=== PATIENT | male | born 2000 | race Caucasian/White ===

== ENCOUNTER 2022-04-20 22:22 | Emergency (ER) | payer OTHER, SELFPAY ==
[2022-04-20 22:33] VITALS: BP 119/78; PULSE 84; RESP 18; TEMP 36.7; O2SAT 99; BMI 24.4
--- NOTE | 2022-04-20 22:45 | ED.GENADULT ---
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 Currently has no visual problem and feels his vision is normal occasionally will feel blurred as novel lot eye pain, no diplopia Related Data Home Medications Medication Instructions Recorded Confirmed armodafinil 150 mg tablet 150 mg PO DAILY 04/20/22 04/20/22 dextroamphetamine-amphetamine 20 20 mg PO DAILY 04/20/22 04/20/22 mg tablet fluoxetine 20 mg capsule 20 mg PO QDAY 04/20/22 04/20/22 fluoxetine 40 mg capsule 40 mg PO QDAY 04/20/22 04/20/22 Allergies Allergy/AdvReac Type Severity Reaction Status Date / Time amoxicillin Allergy Intermediate Hives Verified 04/20/22 22:38 Review of Systems Status of ROS: Reports: 6 or more systems reviewed and unremarkable except as noted in History and below [facility] Medical History (Updated 04/20/22 @ 23:14 by Diego Taylor RN) No significant past medical history Surgical History (Updated 04/20/22 @ 23:14 by Diego Taylor RN) No significant past surgical history Social History Smoking Status: Never smoker Do you use any of these nicotine containing products: None Second hand tobacco smoke exposure: No How often do you have a drink containing alcohol: never How often do you have six or more drinks on one occasion: Never AUDIT-C Alcohol total score: 0 Non-prescribed substance use: denies use Exam Narrative: Exam Narrative: Objective: Patient has normal gross visual acuity, no left eye conjunctivitis, small bruise to the upper lid Pupils react to light extraocular moves intact, funduscopic exam shows no evidence of bleeding or abnormality on the left eye, magnified exam shows no foreign body or abrasion to the eye Const: Vital Signs, click to edit/add: Vital Signs - 24 hr 04/20/22 22:33 Temperature 98.0 F Pulse Rate [Right Pulse Oximeter] 84 Respiratory Rate 18 Blood Pressure [Ri ght Upper Arm] 119/78 Pulse Oximetry 99 Oxygen Delivery Me thod Room Air Course Vital Signs Vital signs: Initial Vital Signs Temperature 98.0 F 04/20/22 22:33 Temperature Source Temporal Artery Scan 04/20/22 22:33 Pulse Rate 84 04/20/22 22:33 Respiratory Rate 18 04/20/22 22:33 Blood Pressure 119/78 04/20/22 22:33 Blood Pressure Mean 91 04/20/22 22:33 Blood Pressure Position Sitting 04/20/22 22:33 Pulse Oximetry 99 04/20/22 22:33 Oxygen Delivery Method 04/20/22 22:33 Vital Signs Temperature 98.0 F 04/20/22 22:33 Pulse Rate 84 04/20/22 22:33 Respiratory Rate 18 04/20/22 22:33 Blood Pressure 119/78 04/20/22 22:33 Pulse Oximetry 99 04/20/22 22:33 Oxygen Delivery Method 04/20/22 22:33 Temperature 98.0 F 04/20/22 23:20 Pulse Rate 79 04/20/22 23:20 Respiratory Rate 18 04/20/22 23:20 Blood Pressure 115/74 04/20/22 23:20 Pulse Oximetry 99 04/20/22 23:14 Oxygen Delivery Method 04/20/22 23:14 Medical Decision Making MDM Narrative Medical decision making narrative: Patient had a frisbee hit him in the face in the left eye, intermittently blurred vision, reassuring physical examination and I have site currently, patient has normal gross visual acuity. No evidence of trauma or foreign body to the eye. Will give the [facility] I number have a formal eye exam tomorrow, would recommend this. He can return sooner problems concerns difficulty very Discharge Plan Discharge Clinical Impression: Eye injury Patient Disposition: Home w/ Parent or Adult Condition: Stable Additional Instructions: Light activity, no contact activity, no exercise until eye appointment tomorrow, recommend follow-up with [facility] eye doctor tomorrow for reassessment. Their number is [phone]. Activity Level: Light activity Discharge Diet: Regular Prescriptions: No Action fluoxetine 40 mg capsule 40 mg PO QDAY Label Comments: TAKE 1 CAPSULE BY MOUTH ONCE A DAY WITH 20 MG CAPSULE FOR TOTAL DOSE 60 MG. fluoxetine 20 mg capsule 20 mg PO QDAY armodafinil 150 mg tablet 150 mg PO DAILY Label Comments: TAKE 1 TABLET (150 MG TOTAL) BY MOUTH IN THE MORNING. dextroamphetamine-amphetamine 20 mg tablet 20 mg PO DAILY Label Comments: PLEASE SEE ATTACHED FOR DETAILED DIRECTIONS Stand Alone Forms: [employer] Info Instructions
[2022-04-20 23:14] VITALS: BP 115/74; PULSE 79; RESP 18; TEMP 36.7; O2SAT 99
[2022-04-20 23:20] VITALS: BP 115/74; PULSE 79; RESP 18; TEMP 36.7
== END 2022-04-20 23:20 | disposition home or self-care (01) ==
LOC: ED 22:52
PROVIDERS: Emergency Provider Family Medicine
DX: S05.92XA Unspecified injury of left eye and orbit, initial encounter (principal); Y93.74 Activity, frisbee; Y92.39 Other specified sports and athletic area as the place of occurrence of the external cause
CPT/HCPCS: 99282; 99283

== ENCOUNTER 2022-05-05 15:22 | Emergency (ER) | payer OTHER, SELFPAY ==
[2022-05-05 15:44] VITALS: BP 125/76; PULSE 79; RESP 18; TEMP 36.7; O2SAT 98; BMI 20.2
--- NOTE | 2022-05-05 15:47 | CRLHL7_ITS ---
For Patients: As a result of the Century Cures Act, medical imaging exams and procedure reports are released immediately into your electronic medical record. You may view this report before your referring provider. If you have questions, please contact your health care provider. Indication: Injury and pain. Technique: Right wrist, 3 views Comparison: None. Findings: Bones: Alignment is normal. No fractures or bone lesions. Joint spaces: Unremarkable. Soft tissues: Unremarkable. Impression: No acute injury in the right wrist. Dictated by Vinny Ferrell MD @ 05/05/2022 4:41:04 PM (Electronically Signed)
--- NOTE | 2022-05-05 16:59 | ED.UPPEXIN ---
HPI - Extremity Injury (Upper) General Time Seen by Provider: 17:00 Date Seen: 05/05/22 Chief Complaint: Extremity Pain/Injury, Upper Stated Complaint: Right Wrist Injury - Fracture Concern Time Seen by Provider: 05/05/22 16:59 Source: patient and RN notes reviewed Mode of arrival: ambulatory Limitations: no limitations History of Present Illness HPI narrative: Patient is a 21-year-old male coming in after he talked to the strainer tender about some wrist pain. He was playing Frisbee yesterday and got tangled up with somebody fell on an outstretched wrist. He states his wrist did not really hurt until about 5 hours later. He took 2 ibuprofen last night. He saw the strainer tender today who recommended he be evaluated. Nothing else was injured, did not hit his head, no loss of consciousness. Related Data Home Medications Medication Instructions Recorded Confirmed armodafinil 150 mg tablet 150 mg PO DAILY 04/20/22 04/20/22 dextroamphetamine-amphetamine 20 20 mg PO DAILY 04/20/22 04/20/22 mg tablet fluoxetine 20 mg capsule 20 mg PO QDAY 04/20/22 04/20/22 fluoxetine 40 mg capsule 40 mg PO QDAY 04/20/22 04/20/22 Allergies Allergy/AdvReac Type Severity Reaction Status Date / Time amoxicillin Allergy Intermediate Hives Verified 04/20/22 22:38 Review of Systems Narrative: As per HPI PFSH [facility] Medical History (Updated 05/05/22 @ 17:17 by Carlie Cronin MD) No significant past medical history Surgical History (Updated 04/20/22 @ 23:14 by Diego Taylor RN) No significant past surgical history Social History Smoking Status: Never smoker Do you use any of these nicotine containing products: None Second hand tobacco smoke exposure: No How often do you have a drink containing alcohol: never How often do you have six or more drinks on one occasion: Never AUDIT-C Alcohol total score: 0 Non-prescribed substance use: denies use Exam Const: Vital Signs, click to edit/add: Vital Signs - 24 hr 05/05/22 15:44 Temperature 98.1 F Pulse Rate [Right Pulse Oximeter] 79 Respiratory Rate 18 Blood Pressure [Ri ght Upper Arm] 125/76 Pulse Oximetry 98 Oxygen Delivery Me thod Room Air Documenting provider has reviewed patient's vital signs: yes Common normals: no apparent distress, oriented x3, no limitations, healthy appearing, alert and well nourished Extremity: Other: Nontender on the right clavicle, right glenohumeral joint, humerus intact, no pain around range of motion of elbow or palpation of the elbow. He points to the pain maximal intensity along the left ulnar styloid process. There is no overlying skin changes such is ecchymosis, erythema, swelling. Ulnar deviation hurts the most but he can do it. Range of motion of the wrists is actually quite good. He has full range of motion of his digits. No point tenderness over the carpal bones that I can identify or metacarpals. Neuro: Common normals: oriented x3 Sensorium/orientation: alert Course Course Hospital Course: X-ray was ordered while patient weighted based on his mechanism. It was read by Radiology but the time he was seen we were able to inform him of the negative imaging for fracture. Did discuss with him use of a cock-up wrist splint for comfort and he would like to try this. Vital Signs Vital signs: Initial Vital Signs Temperature 98.1 F 05/05/22 15:44 Temperature Source Temporal Artery Scan 05/05/22 15:44 Pulse Rate 79 05/05/22 15:44 Respiratory Rate 18 05/05/22 15:44 Blood Pressure 125/76 05/05/22 15:44 Blood Pressure Mean 92 05/05/22 15:44 Blood Pressure Position Sitting 05/05/22 15:44 Pulse Oximetry 98 05/05/22 15:44 Oxygen Delivery Method 05/05/22 15:44 Vital Signs Temperature 98.1 F 05/05/22 15:44 Pulse Rate 79 05/05/22 15:44 Respiratory Rate 18 05/05/22 15:44 Blood Pressure 125/76 05/05/22 15:44 Pulse Oximetry 98 05/05/22 15:44 Oxygen Delivery Method 05/05/22 15:44 Temperature 98.1 F 05/05/22 15:44 Pulse Rate 79 05/05/22 15:44 Respiratory Rate 18 05/05/22 15:44 Blood Pressure 125/76 05/05/22 15:44 Pulse Oximetry 98 05/05/22 15:44 Oxygen Delivery Method 05/05/22 15:44 MDM - Extremity Injury (Upper) Imaging Data X-ray right wrist: Attestation: I have reviewed the pertinent imaging results. My impression: On my preliminary review, I do not see any acute fracture. Radiologist's impression: Patient: AUDI MONTERO Facility:?[facility] Patient ID:?[id number] Site Patient ID:?[id number]. Site :?[id number] Study:?XRay Extremity Right WRIST 3 VIEWS-05/05/2022 4:17:52 PM Ordering Physician:MEÑO Final Report: Indication: Injury and pain. Technique: Right wrist, 3 views Comparison: None. Findings: Bones: Alignment is normal. No fractures or bone lesions. Joint spaces: Unremarkable. Soft tissues: Unremarkable. Impression: No acute injury in the right wrist. Dictated by Vinny Ferrell MD @ 05/05/2022 4:41:04 PM (Electronic Signature) Critical Care Time Critical Care Time Critical Care Time: No Discharge Plan Discharge Clinical Impression: Sprain and strain of wrist Condition: Stable Instructions: Wrist Sprain (ED) Additional Instructions: Use wrist splint as needed over the next week, can wean out of it as soon as you are able to. Can use Tylenol and/or ibuprofen as needed for pain management, follow bottle directions for dosing. If you are not improving over the next week, recheck with her strainer tender; consider recheck of imaging in 7-10 days with ongoing pain. Activity Level: Activity as Tolerated Prescriptions: No Action fluoxetine 40 mg capsule 40 mg PO QDAY Label Comments: TAKE 1 CAPSULE BY MOUTH ONCE A DAY WITH 20 MG CAPSULE FOR TOTAL DOSE 60 MG. fluoxetine 20 mg capsule 20 mg PO QDAY armodafinil 150 mg tablet 150 mg PO DAILY Label Comments: TAKE 1 TABLET (150 MG TOTAL) BY MOUTH IN THE MORNING. dextroamphetamine-amphetamine 20 mg tablet 20 mg PO DAILY Label Comments: PLEASE SEE ATTACHED FOR DETAILED DIRECTIONS Follow Up/Referrals: Provider,Not a Local [Primary Care Provider] - Stand Alone Forms: [employer] Info Instructions
== END 2022-05-05 17:40 | disposition home or self-care (01) ==
LOC: ED 17:29
PROVIDERS: Emergency Provider Family Medicine
DX: S63.501A Unspecified sprain of right wrist, initial encounter (principal); S66.811A Strain of other specified muscles, fascia and tendons at wrist and hand level, right hand, initial encounter; W03.XXXA Other fall on same level due to collision with another person, initial encounter; Y93.69 Activity, other involving other sports and athletics played as a team or group; Y92.9 Unspecified place or not applicable; Y99.8 Other external cause status
CPT/HCPCS: 73110; 99282; 99283

== ENCOUNTER 2023-08-11 23:21 | Emergency (ER) | payer OTHER, SELFPAY ==
[2023-08-11 23:28] VITALS: BP 130/82; PULSE 78; RESP 16; TEMP 37; O2SAT 97; BMI 21.3
--- NOTE | 2023-08-11 23:28 | CRLHL7_ITS ---
For Patients: As a result of the Century Cures Act, medical imaging exams and procedure reports are released immediately into your electronic medical record. You may view this report before your referring provider. If you have questions, please contact your health care provider. Indication: Ankle trauma Technique: Three views left ankle Comparison: None Findings: Bones: Alignment is normal. No fractures or bone lesions. Joint spaces: Unremarkable. Soft tissues: Lateral soft tissue swelling. Impression: Lateral soft tissue swelling. No acute fracture or subluxation Dictated by Cora Kohler MD @ 08/12/2023 12:34:14 AM (Electronically Signed)
--- NOTE | 2023-08-12 00:14 | CRLHL7_ITS ---
For Patients: As a result of the Cures Act, medical imaging exams and procedure reports are released immediately into your electronic medical record. You may view this report before your referring provider. If you have questions, please contact your health care provider. INDICATION: Trauma. TECHNIQUE: Left foot radiographs, 3 views. COMPARISON: None. FINDINGS: No acute fractures or dislocation. The joint spaces are preserved. The Lisfranc joint appears unremarkable. The calcaneus is unremarkable. No significant soft tissue edema or radiopaque foreign bodies. IMPRESSION: No acute fracture or dislocation. Dictated by Kaushik Dailey MD @ 08/12/2023 1:17:32 AM (Electronically Signed)
--- NOTE | 2023-08-12 00:15 | ED.LOWEXIN ---
HPI - Extremity Injury (Lower) General Date Seen: 08/12/23 Chief Complaint: Extremity Pain/Injury, Lower Stated Complaint: Sprained Ankle Time Seen by Provider: 08/11/23 23:50 Source: patient Mode of arrival: ambulatory Limitations: no limitations History of Present Illness HPI Narrative: Insert 23-year-old male presenting to emergency department for left foot and ankle pain. Says around 20:00 today he was playing frisbee when he jumped and landed on the ankle walk quickly. He he has been able to put some pressure on the left and go but states this is painful. Does states his left foot feels mildly numb compared to his right. Denies any knee or hip pain. States he has also hurt his left ankle back in June and was wearing a brace today when he injured it. No other complaints noted at this time. He took ibuprofen prior to arrival and states the pain is tolerable at this time Related Data Home Medications Medication Instructions Recorded Confirmed armodafinil 150 mg tablet 150 mg PO DAILY 04/20/22 04/20/22 dextroamphetamine-amphetamine 20 20 mg PO DAILY 04/20/22 04/20/22 mg tablet fluoxetine 20 mg capsule 20 mg PO QDAY 04/20/22 04/20/22 fluoxetine 40 mg capsule 40 mg PO QDAY 04/20/22 04/20/22 Allergies Allergy/AdvReac Type Severity Reaction Status Date / Time amoxicillin Allergy Intermediate Hives Verified 04/20/22 22:38 Review of Systems Narrative: Pertinent systems reviewed and were negative unless stated in HPI [facility] Medical History No significant past medical history Surgical History No significant past surgical history Social History Smoking Status: Never smoker Do you use any of these nicotine containing products: None Second hand tobacco smoke exposure: No How often do you have a drink containing alcohol: never How often do you have six or more drinks on one occasion: Never AUDIT-C Alcohol total score: 0 Non-prescribed substance use: denies use service: No Exam Narrative: Exam Narrative: Const: Well-nourished, Well-developed, in mild distress Eyes: PERRL, no conjunctival injection, and symmetrical lids HENT: Atraumatic external nose and ears. Moist mucous membranes. Neck: Symmetric, trachea midline, No thyromegaly. CVS: Peripheral pulses 2+ and equal in lower extremities MSK: The swelling noted to the lateral malleolus of left ankle and at dorsal aspect of the midfoot. No tenderness noted at the base of the 5th metatarsal. No tenderness noted to the knee or hip. No tenderness noted at the fibular head. Skin: Warm, Dry. No rashes or lesions. Neuro: Normal Muscle tone, No focal neurological deficits. Psych: Awake, Alert, & Oriented x3. Appropriate mood and affect. Const: Vital Signs, click to edit/add: Vital Signs - 24 hr 08/11/23 23:28 Temperature 98.6 F Pulse Rate [Left P ulse Oximeter] 78 Respiratory Rate 16 Blood Pressure [Ri ght Upper Arm] 130/82 Pulse Oximetry 97 Oxygen Delivery Me thod Room Air Course Vital Signs Vital signs: Initial Vital Signs Temperature 98.6 F 08/11/23 23:28 Temperature Source Temporal Artery Scan 08/11/23 23:28 Pulse Rate 78 08/11/23 23:28 Pulse Rhythm Regular 08/11/23 23:28 Respiratory Rate 16 08/11/23 23:28 Blood Pressure 130/82 08/11/23 23:28 Blood Pressure Mean 98 08/11/23 23:28 Blood Pressure Position Sitting 08/11/23 23:28 Pulse Oximetry 97 08/11/23 23:28 Oxygen Delivery Method Room Air 08/11/23 23:28 Vital Signs Temperature 98.6 F 08/11/23 23:28 Pulse Rate 78 08/11/23 23:28 Respiratory Rate 16 08/11/23 23:28 Blood Pressure 130/82 08/11/23 23:28 Pulse Oximetry 97 08/11/23 23:28 Oxygen Delivery Method Room Air 08/11/23 23:28 Temperature 98.6 F 08/11/23 23:28 Pulse Rate 78 08/11/23 23:28 Respiratory Rate 16 08/11/23 23:28 Blood Pressure 130/82 08/11/23 23:28 Pulse Oximetry 97 08/11/23 23:28 Oxygen Delivery Method Room Air 08/11/23 23:28 MDM - Extremity Injury (Lower) MDM Narrative Medical decision making narrative: Patient is a 23-year-old male presenting for left ankle and foot pain. Nursing staff ordered an ankle x-ray. This x-rays reviewed by myself and by radiologist and showed no acute fractures. When I went to go speak to the patient he is also having pain on the dorsal aspect of his midfoot. Do this I ordered a foot x-ray also. This was also reviewed by myself and the radiologist showing no acute fractures or injuries.. He is not requesting any pain medication at this time. He is otherwise doing well at this time and is ambulating. He will be discharged home. He is agreeable to this plan peer Imaging Data Left ankle x-ray: Radiologist's impression: Lateral soft tissue swelling. No acute fracture or subluxation Dictated by Cora Kohler MD @ 08/12/2023 12:34:14 AM Left foot x-ray: Radiologist's impression: No acute fracture or dislocation. Dictated by Kaushik Dailey MD @ 08/12/2023 1:17:32 AM Discharge Plan Discharge Clinical Impression: Ankle sprain and strain Patient Disposition: Home, Self-Care Condition: Stable Instructions: Ankle Sprain (DC) Additional Instructions: Continue to wear your ankle brace. Take Tylenol and ibuprofen for pain. Return to emergency department for new or worsening symptoms. Prescriptions: No Action fluoxetine 40 mg capsule 40 mg PO QDAY Patient Comments: TAKE 1 CAPSULE BY MOUTH ONCE A DAY WITH 20 MG CAPSULE FOR TOTAL DOSE 60 MG. fluoxetine 20 mg capsule 20 mg PO QDAY armodafinil 150 mg tablet 150 mg PO DAILY Patient Comments: TAKE 1 TABLET (150 MG TOTAL) BY MOUTH IN THE MORNING. dextroamphetamine-amphetamine 20 mg tablet 20 mg PO DAILY Patient Comments: PLEASE SEE ATTACHED FOR DETAILED DIRECTIONS Follow Up/Referrals: Provider,Not a Local [Primary Care Provider] - Stand Alone Forms: [employer] Info Instructions
== END 2023-08-12 01:24 | disposition home or self-care (01) ==
PROVIDERS: Emergency Provider Student in an Organized Health Care Education/Training Program
DX: S93.402A Sprain of unspecified ligament of left ankle, initial encounter (principal); X50.1XXA Overexertion from prolonged static or awkward postures, initial encounter; Y93.74 Activity, frisbee
CPT/HCPCS: 73610; 73630; 99282; 99283